=== PATIENT | female | born 1995 | race Caucasian/White ===

== ENCOUNTER 2024-06-10 11:20 | Outpatient (AMB) | payer MEDICAID, SELFPAY ==
[2024-06-10 11:27] VITALS: BP 124/80; PULSE 77; RESP 18; TEMP 36.4; O2SAT 96; BMI 44.4
--- NOTE | 2024-06-10 11:27 | PD.GSCLVISIT ---
Vital Signs - [facility] 06/10/24 11:27 Height 1.63 m Height Method Stated Weight 117.991 kg Weight Measurement Method Standing Scale BMI 44.4 BP 124/80 Blood Pressure Source Automatic Cuff Blood Pressure Location Left Upper Arm Position Sitting Respiration 18 Pulse 77 Pulse Source Monitor Temp 97.6 F Temp Source Temporal Artery Scan Pulse Oximetry (%) 96 Oxygen Delivery Method Room Air Med/Allergies Allergies & Medications Allergies No Known Allergies Allergy (Verified 06/10/24 11:28) Medication Reconciliation albuterol sulfate 90 mcg/actuation aerosol inhaler inh inhalation [id number] PRN Wheezing 08/22/23 [History Confirmed 12/04/23] hydrocortisone 2.5 % topical cream with perineal applicator 1 applic DC QDAY PRN hemorrhoids #30 grams 02/23/24 [Rx] hydrocortisone acetate 25 mg rectal suppository (Anusol-HC) 25 mg DC QHS #12 ea 06/10/24 [Rx] MA Intake Visit Data Collection New Patient or Established: Established Patient (seen at [facility] within 3 years) Seen by Clinical Staff ONLY (RN/MA): No Reason for Visit:: FOLLOW UP [facility] Pain Present Currently: No Pain scale:: 0 [employer] Required: No PCP or OBGYN visit in last 3 months: Yes Hx Now: No Do You Feel Safe at Home: Yes Authorities Contacted: N/A Smoking Status Smoking Status: Never smoker Immunization / Flu Flu Vaccine in the Last 12 Months: Yes Flu Vaccine Exclusion Criteria: Already Received Past Medical History Past Medical History NEUROLOGIC: Negative Neurological Disorders or Seizures CARDIAC: Negative Cardiac Disorders or Congestive Heart Failure RESPIRATORY: Positive Asthma, Smoking (1 YEAR) and Smoking Exposure; Negative Chronic Obstructive Pulmonary Disease (COPD) GASTROINTESTINAL: Positive Gastrointestinal Disorders (fatty liver), Hemorrhoids and Obesity GENITOURINARY: Negative Genitourinary Disorders or Renal Disease REPRODUCTIVE: Positive Previous Pregnancies (2) ENDOCRINE: Negative Endocrine Disorders, Diabetes Mellitus Type 1 or Diabetes Mellitus Type 2 HEMATOLOGIC: Negative Blood Disorders PSYCHO/SOCIAL: Positive Depression (no meds) and Anxiety OTHER HISTORY: Positive Hospitalization (surgery); Negative Autoimmune Disease, Shingles, Blood Transfusions, Blood Transfusion Reaction, Anesthesia Reactions or Cancer Family History FAMILY HISTORY: Negative Family Psychiatric Problems, Family Respiratory Disorders, Family Cardiac Disorders, Family Gastrointestinal Problems, Family Cancer, Family Surgery or Family Anesthesia Reaction Social History SMOKING STATUS: Smoking status: Never smoker ALCOHOL: Alcohol Intake: Never HOUSING: Housing: House HPI HPI Narrative 29F referred for symptomatic hemorrhoids s/p THD 08/2023 here for follow up. Pt reports her symptoms are overall better compared to before surgery, but she still has episodes of discomfort and times when she feels there is still swelling in the area. Her BMs are sometimes loose which she relates to her anxiety as well as history of cholecystectomy, and she continues to take fiber and drink plenty of water. She is using hydrocortisone cream which helps somewhat with the discomfort and she takes sitz baths occasionally. She does feel now that she is ready to return to work ROS Review of Systems Systems Reviewed: All systems reviewed, normal except as documented Objective/Exam General General Appearance: alert, cooperative and well groomed Resp Respiratory exam: Absent respiratory distress Assessment & Plan Diagnosis / Problem List (1) Hemorrhoids with complication: Status: Acute Assessment & Plan: 29F referred for symptomatic hemorrhoids s/p THD 08/2023 here for follow up, with mild ongoing symptoms but overall feeling improved and ready to return to work. Pt would like to try suppositories instead of cream so I placed that order and sent her a text via [employer] to help with cost. All questions were answered and pt is agreeable to follow up in 2 mos Office Procedures GNS Level of Care Nursing/Assessment Patient Status: Established Patient Nursing Assessment/Reassesment: Medication Reconciliation, Update PMH in EMR and Vital Signs Coordination of Care: Complex Care and Chronic Disease 1-5, Consent,records obtained, informed consent, Education Simp Pt/Fam, Results/Orders obtained and Staff clarify orders Established Patient Charge Established Patient Point Assignment: 90 Established Patient Point Charge: EP Level 3 (80-115) Patient Portal Questionaires Social History Living Situation History Housing: House Tobacco History Smoking Status: Never smoker Alcohol History Alcohol Intake: Never Domestic Abuse History Do You Feel Safe at Home: Yes Review of Systems Report any current symptoms Only answer those that you have currently: Past Medical History Past Medical History Have you ever been diagnosed with any of the following: Neurological Problems Seizures: No Cardiology Problems Congestive Heart Failure: No Respiratory Problems Chronic Obstructive Pulmonary Disease (COPD): No Asthma: Yes Smoking: Yes (1 YEAR) Smoking Exposure: Yes Stomache/Intestinal Problems Hemorrhoids: Yes Obesity: Yes Genital/Urinary Problems Renal Disease: No Reproductive Problems Previous Pregnancies: Yes (2) Endocrine Problems Diabetes Mellitus Type 1: No Diabetes Mellitus Type 2: No Psychologic Problems Depression: Yes (no meds) Anxiety: Yes Other Problems Hospitalization: Yes (surgery) Autoimmune Disease: No Shingles: No Blood Transfusions: No Blood Transfusion Reaction: No Anesthesia Reactions: No Cancer: No
== END 2024-06-10 11:46 | disposition home or self-care (01) ==
LOC: HODSRG 11:20
PROVIDERS: Supervising Provider Surgery; Visit Provider Surgery
DX: K64.8 Other hemorrhoids (principal)
CPT/HCPCS: 99213; G0463